=== PATIENT | male | born 1990 | race Caucasian/White ===

== ENCOUNTER 2017-06-04 14:23 | Emergency (ER) | payer OTHER ==
[~2017-06-04] VITALS: Ht 193 cm; Wt 76.7 kg
[2017-06-04 14:30] VITALS: BP 148/83
[2017-06-04] MEDS ORDERED: IBUPROFEN 200 MG TABLET ONE (15:17)
[2017-06-04] MEDS ORDERED: IBUPROFEN 200 MG TABLET PO ONE (15:30)
== END 2017-06-04 15:39 | disposition home or self-care (01) ==
LOC: ED 15:30
DX: S93.402A Sprain of unspecified ligament of left ankle, initial encounter (principal); X58.XXXA Exposure to other specified factors, initial encounter; Y93.89 Activity, other specified; Y92.488 Other paved roadways as the place of occurrence of the external cause; Y99.8 Other external cause status
CPT/HCPCS: 99284

== ENCOUNTER 2018-07-25 12:10 | Emergency (ER) | payer SELFPAY ==
[~2018-07-25] VITALS: Ht 193 cm; Wt 83.1 kg
[2018-07-25 12:35] VITALS: BP 127/84
[2018-07-25] MEDS ORDERED: METHOCARBAMOL 750 MG TABLET PO ONE (13:00)
[2018-07-25] MEDS ORDERED: KETOROLAC 30 MG/1 ML IM ONE (13:00)
[2018-07-25] MEDS ORDERED: HYDROcodone/APAP 5/325 TABLET PO ONE (13:00)
[2018-07-25] MEDS ORDERED: KETOROLAC 30 MG/1 ML ONE (13:30)
[2018-07-25] MEDS ORDERED: METHOCARBAMOL 750 MG TABLET ONE (13:30)
== END 2018-07-25 14:10 | disposition home or self-care (01) ==
LOC: ED 14:00
DX: S39.012A Strain of muscle, fascia and tendon of lower back, initial encounter (principal); M46.1 Sacroiliitis, not elsewhere classified; X58.XXXA Exposure to other specified factors, initial encounter; Y93.89 Activity, other specified; Y92.69 Other specified industrial and construction area as the place of occurrence of the external cause; Y99.9 Unspecified external cause status
CPT/HCPCS: 96372; 99283; J1885

== ENCOUNTER 2020-02-04 11:03 | Emergency (ER) | payer BC ==
[~2020-02-04] VITALS: Ht 193 cm; Wt 77.6 kg
--- NOTE | 2020-02-04 11:51 | NUR ---
PT CAME IN CO OF HAVING A SYNCOPLE EPISODE 2 DASY AGO AND SINCE THEN HAS FELT NAUSEOUS AND DIZZY. LABS DRAWN. EKG COMPLETE. IV FLUIDS INFUSING. CALL LIGHT WITHIN REACH
[2020-02-04] MEDS ORDERED: SODIUM CHLORIDE FLUSH 10ML SYR IVF ONE (12:00)
[2020-02-04] MEDS ORDERED: SODIUM CHLORIDE 0.9% 1,000ML IVBOLUS ONE (12:00)
[2020-02-04 12:06] LABS: BASOPHILS # (AUTO) 0.03 x10^3/uL (0-0.1); BASOPHILS % (AUTO) 1 % (0-1); EOSINOPHILS # (AUTO) 0.04 x10^3/uL (0-0.4); EOSINOPHILS % (AUTO) 1 % (1-7); LYMPHOCYTES % (AUTO) 21 % (22-44); MD NO; MEAN CORPUSCULAR HEMOGLOBIN 32.9 pg (27.5-34.5); MEAN CORPUSCULAR HGB CONC 34.1 g/dL (33.2-36.2); MEAN CORPUSCULAR VOLUME 96.6 fL (81-97); MEAN PLATELET VOLUME 8.7 fL (7.4-10.4); MONOCYTES # (AUTO) 0.33 x10^3/uL (0.2-0.8); MONOCYTES % (AUTO) 8 % (2-9); NEUTROPHILS # (AUTO) 2.94 x10^3/uL (1.8-6.8); NEUTROPHILS % (AUTO) 70 % (42-75); PLATELET COUNT 187 x10^3/uL (130-400); RED BLOOD COUNT 4.83 x10^6/uL (4.38-5.82); RED CELL DISTRIBUTION WIDTH 12.9 % (9.4-14.8)
[2020-02-04 12:07] LABS: ALANINE AMINOTRANSFERASE 41 U/L (12-78); ALBUMIN 4.4 g/dL (3.4-5.0); ANION GAP 9 mmol/L (5-15); CALCIUM 8.2 mg/dL (8.5-10.1); CHLORIDE 101 mmol/L (98-107); CREATININE 0.86 mg/dL (0.7-1.3)
[2020-02-04 12:17] LABS: ALKALINE PHOSPHATASE 109 U/L (45-117); BILIRUBIN,TOTAL 6.1 mg/dL (0.2-1.0); FREE T4 (FREE THYROXINE) 1.06 ng/dL (0.76-1.46); TOTAL PROTEIN 8.3 g/dL (6.4-8.2)
--- NOTE | 2020-02-04 12:24 | NUR ---
PT RESTING IN [facility]. VSS. NAD
[2020-02-04 13:22] LABS: INTERNATIONAL NORMALIZED RATIO 1.1 (0.93-1.1); PROTHROMBIN TIME 11.7 Seconds (9.6-11.5)
[2020-02-04 14:03] VITALS: BP 138/99
--- NOTE | 2020-02-04 14:03 | NUR ---
PT RESTING IN [facility]. VSS. NAD. UP FOR RECHECK
== END 2020-02-04 14:30 | disposition home or self-care (01) ==
LOC: ED 12:15
DX: R55 Syncope and collapse (principal); R42 Dizziness and giddiness; E86.0 Dehydration; R51 Headache; E83.42 Hypomagnesemia; R00.0 Tachycardia, unspecified; I51.7 Cardiomegaly
CPT/HCPCS: 36415; 70450; 71045; 76700; 80053; 83735; 84439; 84443; 85025; 85610; 93005; 96360; 99285; J7030; 82962

== ENCOUNTER 2021-03-19 07:42 | Emergency (ER) | payer SELFPAY ==
[~2021-03-19] VITALS: Ht 190.5 cm; Wt 80.3 kg
--- NOTE | 2021-03-19 08:15 | NUR ---
Pt walked back from triage with chief complaint of concerns of etoh withdrawl.
[2021-03-19] MEDS ORDERED: LORazepam 2 MG/ML, 1ML ONE (08:32)
[2021-03-19] MEDS ORDERED: ONDANSETRON 2MG/ML, 2ML ONE (08:32)
[2021-03-19 08:34] LABS: BASOPHILS % (AUTO) 1 % (0-1); EOSINOPHILS % (AUTO) 1 % (1-7); LYMPHOCYTES % (AUTO) 29 % (22-44); MEAN CORPUSCULAR HEMOGLOBIN 32.7 pg (27.5-34.5); MEAN CORPUSCULAR HGB CONC 34.7 g/dL (33.2-36.2); MEAN PLATELET VOLUME 8.9 fL (7.4-10.4); MONOCYTES % (AUTO) 9 % (2-9); NEUTROPHILS % (AUTO) 61 % (42-75); PLATELET COUNT 160 x10^3/uL (130-400); RED BLOOD COUNT 4.64 x10^6/uL (4.38-5.82); RED CELL DISTRIBUTION WIDTH 12.3 % (9.4-14.8)
[2021-03-19 08:43] LABS: ALBUMIN 4.2 g/dL (3.4-5.0); ANION GAP 9 mmol/L (5-15); CHLORIDE 104 mmol/L (98-107)
[2021-03-19 08:46] LABS: ALANINE AMINOTRANSFERASE 63 U/L (12-78); ALKALINE PHOSPHATASE 105 U/L (45-117); BILIRUBIN,TOTAL 7.8 mg/dL (0.2-1.0); CREATININE 0.76 mg/dL (0.7-1.3); TOTAL PROTEIN 7.8 g/dL (6.4-8.2)
[2021-03-19] MEDS ORDERED: SODIUM CHLORIDE FLUSH 10ML SYR IVF ONE (09:00)
[2021-03-19] MEDS ORDERED: LORazepam 2 MG/ML, 1ML IVPush ONE (09:00)
[2021-03-19] MEDS ORDERED: ONDANSETRON 2MG/ML, 2ML IVPush ONE (09:00)
[2021-03-19] MEDS ORDERED: SODIUM CHLORIDE 0.9% 1,000ML IVBOLUS ONE (09:00)
--- NOTE | 2021-03-19 09:12 | NUR ---
PT RESTING IN BED, MEDICATED PER ORDER, TOLERATED WELL. PT A&O, RESPS EVEN AND UNLABORED, VSS, NADN.
[2021-03-19 10:06] VITALS: BP 148/90
--- NOTE | 2021-03-19 10:18 | NUR ---
discharge instructions reviewed, pt educated on follow-up and return criteria, verbalized understanding. ambulatory to discharge desk with steady gait.
== END 2021-03-19 10:21 | disposition home or self-care (01) ==
LOC: ED 08:52
DX: R55 Syncope and collapse (principal); E80.6 Other disorders of bilirubin metabolism; R94.31 Abnormal electrocardiogram [ECG] [EKG]; F10.132 Alcohol abuse with withdrawal with perceptual disturbance; Y90.0 Blood alcohol level of less than 20 mg/100 ml
CPT/HCPCS: 36415; 71045; 80053; 83735; 85025; 93005; 96361; 96374; 96375; 99285; J2060; J2405; J7030